=== PATIENT | male | born 1985 | race Caucasian/White ===

== ENCOUNTER 2018-06-13 10:52 | Emergency (ER) | payer OTHER ==
[2018-06-13] MEDS ORDERED: CEFTRIAXONE INJ 250 MG VIAL IM ONE (11:42)
[2018-06-13] MEDS ORDERED: AZITHROMYCIN 250 MG TABLET PO ONE (11:42)
[2018-06-13] MEDS ORDERED: LIDOCAINE 1% INJ-PF (10 MG/ML) 30 ML SDV INJ ONE (11:43)
--- NOTE | 2018-06-13 11:44 | ER Document Report ---
HPI - HPI Patient complains to provider of: Concern about STD Time Seen by Provider: 06/13/18 11:30 Onset: Last week Onset/Duration: Gradual Pain Level: 0 Context: Patient states that he has had recent unprotected intercourse with several new partners. Patient states that he did not always use a condom. Patient states that another friend warned him that 1 of the people that he had had sex with may have an STD and he wanted to come to get checked. Patient denies any symptoms at this time. Patient does get annual HIV testing with his employer. Patient denies any testicular pain, penile drainage or discharge, dysuria erectile problems or tenderness or swelling to the groin area. Patient denies any abnormal skin lesions. Associated Symptoms: None Exacerbated by: Denies Relieved by: Denies Similar symptoms previously: No Recently seen / treated by doctor: No - ROS ROS below otherwise negative: Yes Systems Reviewed and Negative: Yes All other systems reviewed and negative - CONSTITUTIONAL Constitutional: DENIES: Fever - EENT EENT: DENIES: Sore Throat - GASTROINTESTINAL Gastrointestinal: DENIES: Abdominal Pain - URINARY Urinary: DENIES: Dysuria, Urgency, Frequency - DERM Skin Color: Normal Past Medical History - General Information source: Patient - Social History Smoking Status: Never Smoker Frequency of alcohol use: Occasional Drug Abuse: None Occupation: Active duty Family History: Reviewed & Not Pertinent Psychiatric Medical History: Reports: Hx Anxiety, Hx Depression Surgical Hx: Negative Vertical Provider Document - CONSTITUTIONAL Agree With Documented VS: Yes Exam Limitations: No Limitations General Appearance: WD/WN, No Apparent Distress - INFECTION CONTROL TRAVEL OUTSIDE OF THE [place] IN LAST 30 DAYS: No - HEENT HEENT: Atraumatic, Normal ENT Exam, Normocephalic - NECK Neck: Normal Inspection - RESPIRATORY Respiratory: Breath Sounds Normal, No Respiratory Distress - CARDIOVASCULAR Cardiovascular: Regular Rate, Regular Rhythm - GI/ABDOMEN Gastrointestinal: Abdomen Soft - REPRODUCTIVE Notes: Patient deferred examination - MUSCULOSKELETAL/EXTREMETIES Musculoskeletal/Extremeties: MAEW - NEURO Level of Consciousness: Awake, Alert, Appropriate Motor/Sensory: No Motor Deficit - DERM Integumentary: Warm, Dry, No Rash Course - Vital Signs Vital signs: Temp Pulse Resp BP Pulse Ox 98.3 F 62 16 130/77 H 94 06/13/18 11:02 06/13/18 11:02 06/13/18 11:02 06/13/18 11:02 06/13/18 11:02 Discharge - Discharge Clinical Impression: Concern about STD in male without diagnosis Condition: Stable Disposition: HOME, SELF-CARE Instructions: Azithromycin ([facility]), Rocephin ([facility]) Additional Instructions: Return immediately for any new or worsening symptoms Followup with your primary care provider, call tomorrow to make a followup appointment Follow-up with your primary doctor or with the health department for HIV testing. Safe sex practices [facility]errals[facility] [NO LOCAL MD] - Follow up as needed [facility] [Provider Group] - Follow up as needed
[2018-06-13 12:34] VITALS: BP 132/76
[2018-06-13 13:32] LABS: CHLAM PCR NOT DETECTED (NOT DETECT); GON PCR NOT DETECTED (NOT DETECT)
== END 2018-06-13 12:31 | disposition home or self-care (01) ==
LOC: ER 10:52
DX: Z20.2 Contact with and (suspected) exposure to infections with a predominantly sexual mode of transmission (principal)
CPT/HCPCS: 99283; 96372; 36415; 86592; 87491; 87591; J3490; J0696